=== PATIENT | male | born 1955 | race Caucasian/White ===

== ENCOUNTER 2023-12-25 11:58 | Emergency (ER) | payer MEDICARE, OTHER, SELFPAY ==
[2023-12-25 12:22] VITALS: BP 137/81
[2023-12-25 12:44] LABS: % Basophils 0.4 % (0-2); % Eosinophils 1.8 % (0-6); % Immature Granulocytes 0.3 % (0-0.5); % Lymphocytes 12.8 % (20.5-51.1); % Monocytes 8.2 % (1.7-9.3); % Neutrophils 76.5 % (42.2-75.2); Absolute Basophils 0.1 10^3/uL (0-0.2); Absolute Eosinophils 0.2 10^3/uL (0-0.7); Absolute Lymphocytes 1.5 10^3/uL (1.2-3.4); Absolute Neutrophils 8.9 10^3/uL (1.4-6.5); Hematocrit 44.9 % (39.0-52.0); Hemoglobin 15.8 g/dL (13.0-18.0); Mean Corp Hgb Conc. 35.2 g/dL (33.0-37.0); Mean Corpuscular Hgb 32.6 pg (27.0-31.0); Mean Corpuscular Volume 92.6 fL (80.0-94.0); Mean Platelet Volume 9.7 fL (7.4-10.4); Nucleated Red Blood Cells % 0 % (-); Platelet Count 266 10^3/uL (130-400); Red Blood Cell Count 4.85 10^6/uL (4.70-6.10); Red Cell Dist. Width 13.2 % (11.5-14.5); White Blood Cell Count 11.6 10^3/uL (4.8-10.8)
[2023-12-25 13:14] LABS: ALT (SGPT) 16 U/L (0-50); AST (SGOT) 19 U/L (17-59); Albumin 4.2 g/dl (3.5-5.0); Alkaline Phosphatase 98 U/L (38-126); Blood Urea Nitrogen 10 mg/dl (9-20); Calcium 9.3 mg/dl (8.4-10.2); Carbon Dioxide 22 mmol/L (22-30); Chloride 110 mmol/L (98-107); Glucose 99 mg/dl (70-99); Lipase 48 U/L (23-300); Potassium 4.4 mmol/L (3.5-5.1); Sodium 140 mmol/L (135-145); Total Bilirubin 0.7 mg/dl (0.2-1.3); Total Protein 7.4 g/dl (6.3-8.2); eGFR > 60.00
[2023-12-25 14:11] VITALS: BMI 37.4
--- NOTE | 2023-12-25 15:32 | ED.GENMED ---
History of Present Illness
<MAGI Miguel - Last Filed: 12/26/23 19:19>
General
Chief Complaint: Abdominal Pain
Source: patient
Exam Limitations: none
Time Seen by Provider: 12/25/23 14:32
Nursing documentation reviewed up to this point in time: agreed with
Travel History
Have you had any contact with someone who has COVID-19?: No
Do you have any symptoms of coronavirus? Fever > 100 degrees, chills, cough, shortness of breath, sore throat, loss of taste or smell, muscle aches, or headache?: No
History of Present Illness
History of Present Illness:
Patient is a 68-year male who complains of left lower abdominal pain for the past several months. He does feel that it is worse with standing and moving he denies any injury. He denies any back pain pain to the buttocks. He denies any nausea
vomiting fever chills. His has been sick and therefore has not been able to get this evaluated.
He denies any constipation. He denies any urine frequency urgency or dysuria
Past History
<MAGI Miguel - Last Filed: 12/26/23 19:19>
Past History
ED Past Medical History: GERD; Negative Asthma, HTN, Hypercholesterolemia or NIDDM
ED Past Surgical History: Orthopedic and Other (Surgery for deviated septum, dental surgery); Negative Cardiac
Social History
Tobacco: Former smoker
Alcohol: Occasional
Drug: None
Personal:
Living: with family
Employment: Employed
Family History
Family History: Other
Review of Systems
<MAGI Miguel - Last Filed: 12/26/23 19:19>
Review of Systems
Allergies reviewed?: Yes
Other source history: family
All Other Systems: ROS reviewed and negative except as documented in HPI and ROS
Constitutional: Reports no symptoms; Denies fever, fatigue or chills
Respiratory: Reports no symptoms
Cardiac: Reports no symptoms
ABD/GI: Reports abdominal pain; Denies nausea, vomiting or diarrhea
: Reports no symptoms
Musculoskeletal: Reports no symptoms
Skin: Reports no symptoms
Neurological: Reports no symptoms
Hematologic/Lymphatic: Reports no symptoms
Psychiatric: Reports no symptoms
Phy Exam
<MAGI Miguel - Last Filed: 12/26/23 19:19>
General Physical Exam
General Presentation: no apparent distress
General age: appears stated age
General Skin: warm and dry
General Habitus: normal
General Mental: alert
General Hydration: appears well hydrated
Cardiovascular Exam
Cardiovascular Exam: regular rate/rhythm, no murmur and normal peripheral pulses
Pulmonary Exam
Pulmonary Exam: lungs clear and no respiratory distress
Gastrointestinal Exam
Gastrointestinal Exam: non tender, soft and other (llq with minimal tenderness no obvious fullness/hernia to groin region )
Neurological Exam
Neurological Exam: alert and oriented x3
Musculoskeletal Exam
Musculoskeletal Exam: full ROM
Skin Exam
Skin Exam: normal color and warm/dry
Psychiatric Exam
Psychiatric Exam: normal mood/affect
Course
<MAGI Miguel - Last Filed: 12/26/23 19:19>
Orders/Labs/Results
Orders:
Orders
12/25/23 12:28
Complete Blood Count/With Diff Urgent
Comprehensive Metabolic Panel Urgent
Lipase Urgent
12/25/23 15:52
CT Abd/Pel (IV only)-DH only Urgent
Comment:
Reason For Exam: llq pain
0.9% Sodium Chloride 1000 ml [Nss] 1,000 ml IV BOLUS
Ketorolac [Toradol] 15 mg .ROUTE .STK-MED ONE
Ketorolac [Toradol] 15 mg IV NOW STA
12/25/23 17:43
HYDROmorphone [Dilaudid] 1 mg IV NOW STA
Ondansetron Injectable [Zofran] 4 mg IV NOW STA
12/25/23 20:15
Amoxicillin 875 mg/Clav 125 mg [Augmentin 875 mg/125 mg] 1 tablet PO NOW STA
HYDROmorphone [Dilaudid] 1 mg IV NOW STA
Abnormal Lab Results
12/25/23
12:28
WBC 11.6 H 10^3/uL
(4.8-10.8)
MCH 32.6 H pg
(27.0-31.0)
Absolute Neuts (auto) 8.9 H 10^3/uL
(1.4-6.5)
Absolute Monos (auto) 1.0 H 10^3/uL
(0.1-0.6)
Neutrophils % 76.5 H %
(42.2-75.2)
Lymphocytes % 12.8 L %
(20.5-51.1)
Chloride 110 H mmol/L
(98-107)
12/25/23 12:28
12/25/23 12:28
Vital Signs
Initial and Last Documented VS:
Initial Vital Signs
Temp Pulse Resp BP Pulse Ox
98.4 F 71 16 137/81 98
12/25/23 12:22 12/25/23 12:22 12/25/23 12:22 12/25/23 12:22 12/25/23 12:22
Last Documented Vital Signs
Temp Pulse Resp BP Pulse Ox
98.4 F 70 18 137/88 99
12/25/23 12:22 12/25/23 20:19 12/25/23 20:19 12/25/23 20:19 12/25/23 20:19
Escrow Manager consulted with Physician
Escrow Manager consulted with physician?: Yes
Name of Physician Consulted: Toby
<Rivera Yaniv Luis, DO - Last Filed: 12/25/23 20:19>
Orders/Labs/Results
Orders:
Orders
12/25/23 12:28
Complete Blood Count/With Diff Urgent
Comprehensive Metabolic Panel Urgent
Lipase Urgent
12/25/23 15:52
CT Abd/Pel (IV only)-DH only Urgent
Comment:
Reason For Exam: llq pain
0.9% Sodium Chloride 1000 ml [Nss] 1,000 ml IV BOLUS
Ketorolac [Toradol] 15 mg .ROUTE .STK-MED ONE
Ketorolac [Toradol] 15 mg IV NOW STA
12/25/23 17:43
HYDROmorphone [Dilaudid] 1 mg IV NOW STA
Ondansetron Injectable [Zofran] 4 mg IV NOW STA
12/25/23 20:15
Amoxicillin 875 mg/Clav 125 mg [Augmentin 875 mg/125 mg] 1 tablet PO NOW STA
HYDROmorphone [Dilaudid] 1 mg IV NOW STA
Abnormal Lab Results
12/25/23
12:28
WBC 11.6 H 10^3/uL
(4.8-10.8)
MCH 32.6 H pg
(27.0-31.0)
Absolute Neuts (auto) 8.9 H 10^3/uL
(1.4-6.5)
Absolute Monos (auto) 1.0 H 10^3/uL
(0.1-0.6)
Neutrophils % 76.5 H %
(42.2-75.2)
Lymphocytes % 12.8 L %
(20.5-51.1)
Chloride 110 H mmol/L
(98-107)
12/25/23 12:28
12/25/23 12:28
Vital Signs
Initial and Last Documented VS:
Initial Vital Signs
Temp Pulse Resp BP Pulse Ox
98.4 F 71 16 137/81 98
12/25/23 12:22 12/25/23 12:22 12/25/23 12:22 12/25/23 12:22 12/25/23 12:22
Last Documented Vital Signs
Temp Pulse Resp BP Pulse Ox
98.4 F 70 18 137/88 99
12/25/23 12:22 12/25/23 20:19 12/25/23 20:19 12/25/23 20:19 12/25/23 20:19
<MAGI Miguel - Last Filed: 12/26/23 19:19>
MDM/Problems Addressed
MDM/Problems Addressed:
Patient with mild mid sigmoid colon acute diverticulitis no abscess or perforation.
Patient was prescribed Augmentin . Labs unremarkable. Patient no acute distress well-appearing
<MAGI Miguel - Last Filed: 12/26/23 19:19>
*Critical Care Note
Total Time (30-74mins, 75-104mins- exclusive of procedures): Not Applicable
ED Attending Note
<MAGI Miguel - Last Filed: 12/26/23 19:19>
-
Portions of this chart may have been created with voice recognition software.� Occasional wrong word or��sound alike� substitutions may have occurred due to the inherent limitations of voice recognition software.
<Rivera Luis DO - Last Filed: 12/25/23 20:19>
ED Attending Note
Patient seen and examined by attending physician: Yes
I performed the substantive portion of visit, reviewed & personally made and approve the management plan that is documented in note by myself or ILSA.: Yes
I performed a history and physical exam of patient and discussed management with resident, I reviewed resident's note and agree with documented findings and plan of care.: Yes
ED Attending Note:
I evaluated patient at bedside after CT resulted. Mild diverticulitis noted. He does report rather significant pain but appears comfortable. Mild leukocytosis noted. Augmentin and prescription for narcotic analgesia as he describes the pain is
rather significant.
Discharge Plan
Departure
Patient Disposition: Home (Routine Discharge)
Date of Disposition: 12/25/23
Time of Disposition: 20:15
Patient with high blood pressure during this ER visit?: Yes
Discharge Problem:
Diverticulitis
Prescriptions:
New
oxycodone-acetaminophen [Percocet] 5-325 mg tablet
1 - 2 tab PO Q8H PRN (Reason: Pain) Qty: 14 0RF
amoxicillin-pot clavulanate 875-125 mg tablet
1 tab PO BID Qty: 14 0RF
No Action
ranitidine HCl 300 MG tablet
300 mg PO QPM
triamcinolone acetonide 15 GM cream
1 applic topical DAILY
pantoprazole 40 MG tablet,delayed release (DR/EC)
40 mg PO BID
budesonide [Pulmicort] 0.5 MG/2 ML suspension for nebulization
0.5 mg inhalation BID
montelukast 10 MG tablet
10 mg PO QPM
alum-mag hydroxide-simeth [Mag-Al Plus] 30 ML suspension
30 ml PO QIDPRN PRN (Reason: heartburn)
clindamycin phosphate [ClindaMax] 60 ML lotion
60 ml topical DAILY
levofloxacin 500 MG tablet
500 mg PO DAILY 10 Days 0RF
metronidazole 500 MG tablet
500 mg PO TID Qty: 30 0RF
hydrocodone-acetaminophen 1 TABLET tablet
1 tab PO Q4HPRN PRN (Reason: pain) Qty: 15 0RF
hydrocodone-acetaminophen 1 TABLET tablet
1 tab PO Q4HPRN PRN (Reason: severe pain) Qty: 12 0RF
cephalexin 500 MG capsule
500 mg PO BID Qty: 20 0RF
meclizine 25 MG tablet
25 mg PO Q8HPRN PRN (Reason: dizzy) Qty: 15 0RF
levetiracetam [Keppra] 500 mg tablet
500 mg PO BID Qty: 60 0RF
Referrals:
Lizbeth Boone MD [Family Provider] -
Activity Restrictions/Additional Instructions:
Your white count was slightly high at 11.6. Other basic blood work is normal. The CAT scan shows signs of mild diverticulitis of the sigmoid colon. I recommend you follow your GI doctor. If you take Percocet for pain, I recommend that you also
take MiraLAX to help provide constipation.
Interventions
Interventions:
*Risk Screen - Suicide Last Done: 12/25/23 14:11
*General Assessment Last Done: 12/25/23 14:11
*Neglect/Abuse Screening Last Done: 12/25/23 14:11
ED- Fall Risk Assessment Last Done: 12/25/23 14:11
*ED COVID-19 Vaccine History Last Done: 12/25/23 14:11
*Nursing Disposition Last Done: 12/25/23 20:53
NT-Gwveaz-Xkmprbsjfn Assessment Last Done: 12/25/23 15:18
Discharge Date and Time
Discharge Date/Time: 12/25/23 20:53
[2023-12-25] MEDS: TORADOL 15 MG IV (16:00)
[2023-12-25] MEDS: NSS 1000 IV (16:04)
[2023-12-25 16:20] VITALS: BP 139/79
[2023-12-25] MEDS: ZOFRAN 4 MG IV (17:51)
[2023-12-25] MEDS: DILAUDID 1 MG IV ×2 (17:51→20:18)
[2023-12-25 18:02] VITALS: BP 122/80
[2023-12-25] MEDS: AUGMENTIN 875 MG/125 MG 1 TABLET PO (20:18)
[2023-12-25 20:19] VITALS: BP 137/88
== END 2023-12-25 20:53 | disposition home or self-care (01) ==
LOC: EMR 11:58
PROVIDERS: Emergency Medicine; EMERGENCY PHYSICIAN Emergency Medicine; FAMILY PHYSICIAN Family Medicine
DX: K57.32 Diverticulitis of large intestine without perforation or abscess without bleeding (principal); R10.32 Left lower quadrant pain; K21.9 Gastro-esophageal reflux disease without esophagitis
CPT/HCPCS: 99285; 96374; 96375 ×2; 96376; 74177; 80053; 83690; 85025; Q9967

== ENCOUNTER → 2024-05-08 09:00 | Outpatient (REF) | payer MEDICARE, OTHER, SELFPAY | LOC: RCS 09:00 | PROVIDERS: ATTENDING PHYSICIAN Family Medicine | DX: I47.10 Supraventricular tachycardia, unspecified (principal) | CPT/HCPCS: 93225; 93226 ==

== ENCOUNTER → 2024-07-11 14:19 | Outpatient (REF) | payer MEDICARE, OTHER, SELFPAY | LOC: HWRCS 14:19 | PROVIDERS: ATTENDING PHYSICIAN Internal Medicine Cardiovascular Disease; FAMILY PHYSICIAN Family Medicine | DX: I49.3 Ventricular premature depolarization (principal) | CPT/HCPCS: 93306 ==

== ENCOUNTER → 2024-08-03 11:48 | Outpatient (REF) | payer MEDICARE, OTHER, SELFPAY ==
[2024-08-03 15:56] LABS: % Basophils 0.4 % (0-2); % Eosinophils 2.7 % (0-6); % Immature Granulocytes 0.1 % (0-0.5); % Lymphocytes 18.3 % (20.5-51.1); % Monocytes 8.5 % (1.7-9.3); Absolute Eosinophils 0.3 10^3/uL (0-0.7); Absolute Lymphocytes 1.7 10^3/uL (1.2-3.4); Absolute Monocytes 0.8 10^3/uL (0.1-0.6); Absolute Neutrophils 6.6 10^3/uL (1.4-6.5); Hematocrit 46.6 % (39.0-52.0); Hemoglobin 16.4 g/dL (13.0-18.0); Mean Corp Hgb Conc. 35.2 g/dL (33.0-37.0); Mean Corpuscular Hgb 32.2 pg (27.0-31.0); Mean Corpuscular Volume 91.4 fL (80.0-94.0); Mean Platelet Volume 10.1 fL (7.4-10.4); Nucleated Red Blood Cells % 0 % (-); Platelet Count 250 10^3/uL (130-400); Red Cell Dist. Width 13.1 % (11.5-14.5); White Blood Cell Count 9.4 10^3/uL (4.8-10.8)
[2024-08-03 16:18] LABS: ALT (SGPT) 15 U/L (0-50); AST (SGOT) 21 U/L (17-59); Albumin 4.4 g/dl (3.5-5.0); Alkaline Phosphatase 111 U/L (38-126); Blood Urea Nitrogen 21 mg/dl (9-20); Carbon Dioxide 19 mmol/L (22-30); Chloride 108 mmol/L (98-107); Glucose 96 mg/dl (70-99); HDL Cholesterol 78 mg/dl; LDL Cholesterol, Calculated 117 mg/dl; Potassium 4.3 mmol/L (3.5-5.1); Sodium 144 mmol/L (135-145); Total Bilirubin 0.7 mg/dl (0.2-1.3); Total Cholesterol 210 mg/dl (50-199); Total Protein 7.5 g/dl (6.3-8.2); Triglyceride 75 mg/dl (10-149); Very Low Density Lipoprotein 15 mg/dl (0-30); eGFR > 60.00
[2024-08-03 16:45] LABS: PSA, Total - Screen 1.17 ng/ml (0.0-4.0)
[2024-08-04 09:18] LABS: Glycohemoglobin (HgbA1c) 5.3 % (4.0-5.6)
== END ==
LOC: HWLAB 11:48
DX: Z00.00 Encounter for general adult medical examination without abnormal findings (principal); G40.802 Other epilepsy, not intractable, without status epilepticus; D72.829 Elevated white blood cell count, unspecified
CPT/HCPCS: 36415; 80053; 80061; 83036; 85025; G0103

== ENCOUNTER → 2025-01-17 09:29 | Outpatient (REF) | payer MEDICARE, OTHER, SELFPAY ==
[2025-01-17 12:42] LABS: % Basophils 0.4 % (0-2); % Eosinophils 3.3 % (0-6); % Immature Granulocytes 0.3 % (0-0.5); % Lymphocytes 14.9 % (20.5-51.1); % Monocytes 8.5 % (1.7-9.3); % Neutrophils 72.6 % (42.2-75.2); Absolute Eosinophils 0.3 10^3/uL (0-0.7); Absolute Lymphocytes 1.5 10^3/uL (1.2-3.4); Absolute Monocytes 0.9 10^3/uL (0.1-0.6); Absolute Neutrophils 7.4 10^3/uL (1.4-6.5); Hematocrit 48.5 % (39.0-52.0); Hemoglobin 16.5 g/dL (13.0-18.0); Mean Corpuscular Hgb 32.2 pg (27.0-31.0); Mean Corpuscular Volume 94.5 fL (80.0-94.0); Mean Platelet Volume 9.8 fL (7.4-10.4); Nucleated Red Blood Cells % 0 % (-); Platelet Count 244 10^3/uL (130-400); Red Blood Cell Count 5.13 10^6/uL (4.70-6.10); Red Cell Dist. Width 12.9 % (11.5-14.5); White Blood Cell Count 10.2 10^3/uL (4.8-10.8)
[2025-01-17 13:01] LABS: ALT (SGPT) 19 U/L (0-50); AST (SGOT) 22 U/L (17-59); Albumin 4.6 g/dl (3.5-5.0); Alkaline Phosphatase 99 U/L (38-126); Direct Bilirubin 0.3 mg/dl (0.0-0.4); HDL Cholesterol 93 mg/dl; LDL Cholesterol, Calculated 102 mg/dl; Total Bilirubin 0.8 mg/dl (0.2-1.3); Total Cholesterol 209 mg/dl (50-199); Total Protein 7.6 g/dl (6.3-8.2); Triglyceride 73 mg/dl (10-149); Very Low Density Lipoprotein 14 mg/dl (0-30)
== END ==
LOC: HWLAB 09:29
PROVIDERS: FAMILY PHYSICIAN Family Medicine
DX: Z79.899 Other long term (current) drug therapy (principal); L70.0 Acne vulgaris
CPT/HCPCS: 36415; 80061; 80076; 85025

== ENCOUNTER → 2025-04-25 13:18 | Outpatient (REF) | payer MEDICARE, OTHER, SELFPAY ==
[2025-04-25 15:33] LABS: ALT (SGPT) 17 U/L (0-50); AST (SGOT) 22 U/L (17-59); HDL Cholesterol 77 mg/dl; LDL Cholesterol, Calculated 152 mg/dl; Total Cholesterol 248 mg/dl (50-199); Triglyceride 99 mg/dl (10-149); Very Low Density Lipoprotein 19 mg/dl (0-30)
== END ==
LOC: HWLAB 13:18
PROVIDERS: ATTENDING PHYSICIAN Student in an Organized Health Care Education/Training Program; FAMILY PHYSICIAN Family Medicine
DX: L70.0 Acne vulgaris (principal); Z79.899 Other long term (current) drug therapy
CPT/HCPCS: 36415; 80061; 84450; 84460

== ENCOUNTER → 2025-07-05 07:52 | Outpatient (REF) | payer MEDICARE, OTHER, SELFPAY ==
[2025-07-05 09:48] LABS: Hematocrit 49.4 % (39.0-52.0); Hemoglobin 16.6 g/dL (13.0-18.0); Mean Corp Hgb Conc. 33.6 g/dL (33.0-37.0); Mean Corpuscular Volume 94.6 fL (80.0-94.0); Nucleated Red Blood Cells % 0 % (-); Platelet Count 225 10^3/uL (130-400); Red Cell Dist. Width 12.5 % (11.5-14.5)
[2025-07-05 09:57] LABS: ALT (SGPT) 14 U/L (0-50); AST (SGOT) 19 U/L (17-59); Albumin 4.3 g/dl (3.5-5.0); Alkaline Phosphatase 105 U/L (38-126); Blood Urea Nitrogen 16 mg/dl (9-20); Calcium 9.3 mg/dl (8.4-10.2); Carbon Dioxide 20 mmol/L (22-30); Chloride 114 mmol/L (98-107); Glucose 103 mg/dl (70-99); HDL Cholesterol 69 mg/dl; LDL Cholesterol, Calculated 128 mg/dl; Potassium 4.2 mmol/L (3.5-5.1); Sodium 142 mmol/L (135-145); Total Protein 7.3 g/dl (6.3-8.2); Very Low Density Lipoprotein 21 mg/dl (0-30); eGFR > 60.00
[2025-07-05 10:24] LABS: PSA, Total - Screen 2.46 ng/ml (0.0-4.0)
[2025-07-05 11:10] LABS: Glycohemoglobin (HgbA1c) 5.4 % (4.0-5.6)
== END ==
LOC: HWLAB 07:52
PROVIDERS: ATTENDING PHYSICIAN Family Medicine
DX: Z00.00 Encounter for general adult medical examination without abnormal findings (principal); Z12.5 Encounter for screening for malignant neoplasm of prostate; R73.01 Impaired fasting glucose; E66.9 Obesity, unspecified; R53.83 Other fatigue
CPT/HCPCS: 36415; 80053; 80061; 83036; 85025; G0103

== ENCOUNTER 2025-09-25 14:01 | Emergency (ER) | payer MEDICARE, OTHER, SELFPAY ==
[2025-09-25] VITALS (7 sets, daily range): BP systolic 106–163; BP diastolic 58–92; BMI 36.9
[2025-09-25 15:25] LABS: Hematocrit 46.8 % (39.0-52.0); Hemoglobin 16.1 g/dL (13.0-18.0); Mean Corp Hgb Conc. 34.4 g/dL (33.0-37.0); Mean Corpuscular Volume 93.6 fL (80.0-94.0); Nucleated Red Blood Cells % 0 % (-); Platelet Count 198 10^3/uL (130-400); Red Cell Dist. Width 13.1 % (11.5-14.5)
[2025-09-25 15:42] LABS: ALT (SGPT) 13 U/L (0-50); AST (SGOT) 17 U/L (17-59); Albumin 4.3 g/dl (3.5-5.0); Alkaline Phosphatase 97 U/L (38-126); Blood Urea Nitrogen 17 mg/dl (9-20); Calcium 9.5 mg/dl (8.4-10.2); Carbon Dioxide 20 mmol/L (22-30); Chloride 112 mmol/L (98-107); Estimated Creatinine Clearance 79 ml/min; Glucose 101 mg/dl (70-99); Lipase 23 U/L (23-300); Magnesium 2.2 mg/dl (1.6-2.3); Potassium 4.3 mmol/L (3.5-5.1); Sodium 137 mmol/L (135-145); Total Protein 7.6 g/dl (6.3-8.2); eGFR > 60.00
[2025-09-25 15:45] LABS: Troponin I < 0.012 ng/ml
--- NOTE | 2025-09-25 15:55 | ED.GENMED ---
History of Present Illness
General
Chief Complaint: Chest Pain
Source: patient and spouse
Exam Limitations: none
Time Seen by Provider: 09/25/25 15:23
Nursing documentation reviewed up to this point in time: agreed with
History of Present Illness
History of Present Illness:
70-year-old male presents with fatigue shortness of breath pressure in his chest for a few days no diaphoresis no nausea vomiting dark or bloody stools no fever or chills no heavy lifting no history of CAD, has seen Dr. Parsons previously for
workup for syncope arrhythmia on aspirin but no other meds, nondrinker has not smoked for 40 years, no prior abdominal surgeries no history of CHF
Past History
Past History
ED Past Medical History: GERD; Negative Asthma, HTN, Hypercholesterolemia or NIDDM
ED Past Surgical History: Orthopedic and Other (Surgery for deviated septum, dental surgery); Negative Cardiac
Social History
Tobacco: Former smoker
Alcohol: None
Drug: None
Personal:
Living: with family
Employment: Employed
Family History
Family History: Negative CAD
Review of Systems
Review of Systems
All Other Systems: Not applicable
Constitutional: Reports fatigue
Respiratory: Reports trouble breathing; Denies hemoptysis
Cardiac: Reports chest pain; Denies diaphoresis or palpitations
ABD/GI: Reports no symptoms; Denies abdominal pain, nausea or diarrhea
: Reports no symptoms
Musculoskeletal: Reports no symptoms
Skin: Reports no symptoms
Neurological: Reports weakness
Endocrine: Reports no symptoms
Hematologic/Lymphatic: Reports no symptoms
Phy Exam
Physical Exam
Physical Exam:
Physical Exam
General: no apparent distress, not acutely ill
Neck: No no jaundice
Heart: s1/s2 regular rate and rhythm, no murmur. equal radial pulses.
Lungs: no acute respiratory distress. clear bilaterally
Abdomen: Nontender
Neuro: alert and oriented. no focal neurological deficits
Skin: no rash
Psychiatric: well kept. interactive and cooperative
Extremities: no edema. no calf tenderness.
Scores
Heart Score for Chest Pain Patients
STEMI patient?: No
History: Slightly or Non-Suspicious
ECG: Normal
Age: >/= 65 years
Risk Factors: 1 or 2 Risk Factors
Troponin: </= Normal Limit
Heart Score for Chest Pain Patients: 3
Heart Score Risk: 2.5% MACE over next 6 weeks
Course
Orders/Labs/Results
Orders:
Orders
09/25/25 14:02
Electrocardiogram (*1) Urgent
Reason for Study: Chest Pain
EKG- Treatment ONCE
09/25/25 15:13
Electrocardiogram (*1) Stat
Reason for Study: Other
Other Reason for Exam: chest pain
Cardiac Monitoring- Treatment ONCE
IV Insert/Care/Rem.- Treatment PRN
Complete Blood Count/With Diff Urgent
Comprehensive Metabolic Panel Urgent
Lipase Urgent
Magnesium Urgent
NT-proBNP Urgent
TSH Urgent
Comment: ADD ON
Troponin I Urgent
CR Chest - 2 Views Urgent
Comment:
Reason For Exam: cp
O2 Therapy [RESP] Urgent
Titrate/Wean O2 to maintain O2 sat greater than (%): 90
Special Instructions: Maintain sats >/=90%
Pulse Ox/spot Check [RESP] Urgent
Quantity: 1
Special Instructions: ON ROOM AIR
09/25/25 15:23
Add On- LAB Urgent
Tests Added?: TSH, Magnesium, BNP
09/25/25 15:52
Aspirin 325 mg PO NOW STA
Nitroglycerin Sublingual [Nitrostat (Sublingual)] 0.4 mg SL [id number] PRN
09/25/25 16:28
D-Dimer Urgent
09/25/25 17:35
Troponin I Urgent
09/25/25 17:41
CT Chest PE Study Urgent
Comment:
Reason For Exam: cp ddimer up
Abnormal Lab Results
09/25/25 09/25/25
15:13 16:28
MCH 32.2 H pg
(27.0-31.0)
D-Dimer 0.55 H ug/mlFEU
(0.00-0.50)
Chloride 112 H mmol/L
(98-107)
Carbon Dioxide 20 L mmol/L
(22-30)
Glucose 101 H mg/dl
(70-99)
09/25/25 15:13
09/25/25 15:13
Vital Signs
Initial and Last Documented VS:
Initial Vital Signs
Temp Pulse Resp BP Pulse Ox
98.3 F 63 16 163/92 98
09/25/25 14:07 09/25/25 14:07 09/25/25 14:07 09/25/25 14:07 09/25/25 14:07
Last Documented Vital Signs
Temp Pulse Resp BP Pulse Ox
98.3 F 56 16 106/71 99
09/25/25 14:07 09/25/25 20:00 09/25/25 20:00 09/25/25 20:00 09/25/25 20:00
MDM/Problems Addressed
Differential Diagnosis Includes:
Cardiac chest pain ACS, noncardiac chest pain PE heart failure pneumonia anemia
MDM/Problems Addressed:
Shortness of breath fatigue chest pain
*Pulse Oximetry
SaO2: 98
Oxygen Mode of Delivery: Room air
Patient hypoxic: no
*Critical Care Note
Total Time (30-74mins, 75-104mins- exclusive of procedures): Not Applicable
Update Note
Update Note:
4 PM update chest x-ray noted EKG troponin proBNP noted repeat his troponin, check high-sensitivity D-dimer
ED Attending Note
-
Portions of this chart may have been created with voice recognition software.� Occasional wrong word or��sound alike� substitutions may have occurred due to the inherent limitations of voice recognition software.
Discharge Plan
Departure
Patient Disposition: Home (Routine Discharge)
Date of Disposition: 09/25/25
Time of Disposition: 19:53
Patient with high blood pressure during this ER visit?: No
Condition: Good
Discharge Problem:
Chest pain
Instructions: Chest Pain DCA Follow Up
Prescriptions:
No Action
cyanocobalamin (vitamin B-12) 1,000 mcg Tablet
1,000 mcg PO DAILY
aspirin 81 mg Tablet,Delayed Release (Dr/Ec)
81 mg PO HS
topiramate 100 mg Tablet
100 mg PO BID
cholecalciferol (vitamin D3) [Vitamin D3] 25 mcg (1,000 unit) Tablet
25 mcg PO DAILY
Referrals:
Lizbeth Boone MD [Family Provider, Family Practice] - Next open appointment
Gregorio Parsons MD [Active, Cardiology] - Next open appointment
Activity Restrictions/Additional Instructions:
Expect a call from Dr. Parsons's office for follow-up
Return to the ER for worsening symptoms or any other concerns
Interventions
Interventions:
*Risk Screen - Suicide Last Done: 09/25/25 14:07
*General Assessment Last Done: 09/25/25 14:57
*Neglect/Abuse Screening Last Done: 09/25/25 14:07
*ED- Fall Risk Assessment Last Done: 09/25/25 14:57
*ED COVID-19 Vaccine History Last Done: 09/25/25 14:57
*ED Influenza Vaccine History Last Done: 09/25/25 14:57
*Nursing Disposition Last Done: 09/25/25 20:09
ED- Cardiac Assessment Last Done: 09/25/25 14:57
Discharge Date and Time
Discharge Date/Time: 09/25/25 20:23
Print Language: [id number]
[2025-09-25] MEDS: NITROSTAT (SUBLINGUAL) 0.4 MG SL (16:29)
[2025-09-25] MEDS: ASPIRIN 325 MG PO (16:32)
[2025-09-25 16:50] LABS: TSH 2.83 uIU/ml (0.47-4.68)
[2025-09-25 17:08] LABS: D-Dimer 0.55 ug/mlFEU (0.00-0.50)
[2025-09-25 18:04] LABS: Troponin I < 0.012 ng/ml
== END 2025-09-25 20:23 | disposition home or self-care (01) ==
LOC: EMR 14:01
PROVIDERS: Emergency Medicine; EMERGENCY PHYSICIAN Emergency Medicine; FAMILY PHYSICIAN Family Medicine
DX: R07.89 Other chest pain (principal); R06.02 Shortness of breath; R53.1 Weakness; R53.83 Other fatigue; K21.9 Gastro-esophageal reflux disease without esophagitis; G47.30 Sleep apnea, unspecified; Z79.82 Long term (current) use of aspirin; Z87.891 Personal history of nicotine dependence
CPT/HCPCS: 99285; 71046; 71275; 80053; 83690; 83735; 83880; 84443; 84484; 85025; 85379; 93005; Q9967

== ENCOUNTER → 2025-10-16 09:09 | Outpatient (REF) | payer MEDICARE, OTHER, SELFPAY | LOC: HWRCS 09:09 | PROVIDERS: ATTENDING PHYSICIAN Internal Medicine Cardiovascular Disease | DX: I49.3 Ventricular premature depolarization (principal) | CPT/HCPCS: 93306 ==

== ENCOUNTER → 2025-10-23 11:28 | Outpatient (REF) | payer MEDICARE, OTHER, SELFPAY | LOC: HWRCS 11:28 | PROVIDERS: ATTENDING PHYSICIAN Internal Medicine Cardiovascular Disease | DX: R07.9 Chest pain, unspecified (principal); R94.31 Abnormal electrocardiogram [ECG] [EKG] | CPT/HCPCS: 78452; 93017; A9500; J2785 ==

== ENCOUNTER → 2025-11-28 08:16 | Outpatient (REF) | payer MEDICARE, OTHER, SELFPAY | LOC: MRI 08:16 | PROVIDERS: ATTENDING PHYSICIAN Internal Medicine Cardiovascular Disease; FAMILY PHYSICIAN Family Medicine | DX: I49.3 Ventricular premature depolarization (principal) | CPT/HCPCS: 75561; 75565; A9585 ==